=== PATIENT | female | born 1970 | race Caucasian/White ===

== ENCOUNTER → 2023-08-30 09:01 | Outpatient (REF) | payer OTHER, SELFPAY | LOC: WDC 09:01 | PROVIDERS: ATTENDING PHYSICIAN Nurse Practitioner Adult Health | DX: R92.8 Other abnormal and inconclusive findings on diagnostic imaging of breast (principal) | CPT/HCPCS: 76642; 77065 ==

== ENCOUNTER → 2024-02-26 07:42 | Outpatient (REF) | payer OTHER, SELFPAY | LOC: HWRAD 07:42 | PROVIDERS: ATTENDING PHYSICIAN Nurse Practitioner Adult Health | DX: Z87.891 Personal history of nicotine dependence (principal) | CPT/HCPCS: 71271 ==

== ENCOUNTER → 2024-02-27 16:27 | Outpatient (REF) | payer OTHER, SELFPAY | LOC: WDC 16:27 | PROVIDERS: ATTENDING PHYSICIAN Nurse Practitioner Adult Health | DX: R92.8 Other abnormal and inconclusive findings on diagnostic imaging of breast (principal) | CPT/HCPCS: 77061; 77065 ==

== ENCOUNTER → 2025-03-24 14:53 | Outpatient (REF) | payer OTHER, SELFPAY | LOC: WDC 14:53 | PROVIDERS: ATTENDING PHYSICIAN Nurse Practitioner Adult Health | DX: Z12.31 Encounter for screening mammogram for malignant neoplasm of breast (principal) | CPT/HCPCS: 77062; 77066 ==

== ENCOUNTER → 2025-03-26 07:58 | Outpatient (REF) | payer OTHER, SELFPAY | LOC: HWRAD 07:58 | PROVIDERS: ATTENDING PHYSICIAN Nurse Practitioner Adult Health | DX: Z87.891 Personal history of nicotine dependence (principal) | CPT/HCPCS: 71271 ==